=== PATIENT | male | born 1960 | race Caucasian/White ===

== ENCOUNTER 2018-02-21 08:28 | Emergency (ER) | payer OTHER ==
[2018-02-21] MEDS ORDERED: MECLIZINE 12.5 MG TAB PO STA (08:59)
[2018-02-21] MEDS ORDERED: SODIUM CHLORIDE 0.9% 1,000 ML IV STA (08:59)
--- NOTE | 2018-02-21 09:13 | ED ---
General Adult HPI - General Chief complaint: Dizziness Stated complaint: Dizzy Time Seen by Provider: 02/21/18 08:47 Source: patient, RN notes reviewed Mode of arrival: ambulatory Limitations: no limitations - History of Present Illness Initial comments: Patient 57-year-old male significant past medical history for stroke, presenting to the emergency room today with a chief complaint of dizziness over the last for 5 days. States started when he was just up and moving around but now has been feeling even when he is sitting. He does describe it as the room spinning. States never had this before. States appetites been well. He denies any other complaints or symptoms. Patient denies any recent fever, chills , shortness of breath, chest pain, back pain, abdominal pain, nausea or vomiting , numbness or tingling, dysuria or hematuria, constipation or diarrhea, headaches or visual changes, or any other complaints. - Related Data Previous Rx's Medication Instructions Recorded Meclizine [Antivert] 25 mg PO DAILY 10 Days tab 02/21/18 Allergies Allergy/AdvReac Type Severity Reaction Status Date / Time No Known Allergies Allergy Verified 02/21/18 08:45 Review of Systems ROS Statement: Those systems with pertinent positive or pertinent negative responses have been documented in the HPI. ROS Other: All systems not noted in ROS Statement are negative. Past Medical History Past Medical History: CVA/TIA, Hyperlipidemia, Hypertension Additional Past Medical History / Comment(s): INTESTINAL BLOCKAGE History of Any Multi-Drug Resistant Organisms: None Reported Additional Past Surgical History / Comment(s): CAROTID STENT Past Psychological History: No Psychological Hx Reported Smoking Status: Former smoker Past Alcohol Use History: None Reported Past Drug Use History: None Reported General Exam - General Exam Comments Initial Comments: General: The patient is awake and alert, in no distress, and does not appear acutely ill. Eye: Pupils are equal, round and reactive to light, extra-ocular movements are intact. No nystagmus. There is normal conjunctiva bilaterally. No signs of icterus. Ears, nose, mouth and throat: There are moist mucous membranes and no oral lesions. Neck: The neck is supple, there is no tenderness or JVD. Cardiovascular: There is a regular rate and rhythm. No murmur, rub or gallop is appreciated. Respiratory: Lungs are clear to auscultation, respirations are non-labored, breath sounds are equal. No wheezes, stridor, rales, or rhonchi. Musculoskeletal: Normal ROM, no tenderness. Sensation intact. Pulses equal bilaterally 2+. Neurological: A&O x 3. CN II-XII intact, There are no obvious motor or sensory deficits. Coordination appears grossly intact. Speech is normal. Skin: Skin is warm and dry and no rashes or lesions are noted. Psychiatric: Cooperative, appropriate mood & affect, normal judgment. Limitations: no limitations Course Vital Signs 02/21/18 02/21/18 02/21/18 08:40 10:26 11:13 Temperature 98 F Pulse Rate 91 66 74 Respiratory 16 16 19 Rate Blood Pressure 152/76 122/73 143/79 O2 Sat by Pulse 98 99 100 Oximetry Medical Decision Making - Medical Decision Making Patient's EKG performed at 0918: A 12-lead EKG was performed and shows the following: Rate is 81, and rhythm is normal sinus. There are normal QRS complexes and normal R-wave progression. ST segments have no elevation or depression, and FL segments appear normal. Patient reexamined at this time shows no signs of distress. Does admit still feeling somewhat dizzy here in the emergency room. Was given meclizine and fluids. Patient does describe it as the room spinning. His CT of his head was negative. His labs been reviewed are unremarkable. Case was discussed with attending physician Dr. Saucedo. At this time patient will be discharged to follow-up with his family doctor and his neurologist. He'll be continued on meclizine. He is advised to return here to emergency room symptoms increase or worsen or for new concerns. - Lab Data Result diagrams: 02/21/18 09:25 02/21/18 09:25 Lab Results 02/21/18 02/21/18 02/21/18 Range/Units 09:25 09:25 09:25 WBC 5.6 (3.8-10.6) k/uL RBC 4.62 (4.30-5.90) m/uL Hgb 14.2 (13.0-17.5) gm/dL Hct 41.8 (39.0-53.0) % MCV 90.5 (80.0-100.0) fL MCH 30.7 (25.0-35.0) pg MCHC 33.9 (31.0-37.0) g/dL RDW 13.0 (11.5-15.5) % Plt Count 221 (150-450) k/uL Neutrophils % 67 % Lymphocytes % 20 % Monocytes % 7 % Eosinophils % 4 % Basophils % 1 % Neutrophils # 3.7 (1.3-7.7) k/uL Lymphocytes # 1.1 (1.0-4.8) k/uL Monocytes # 0.4 (0-1.0) k/uL Eosinophils # 0.2 (0-0.7) k/uL Basophils # 0.0 (0-0.2) k/uL PT 10.1 (9.0-12.0) sec INR 1.0 (<1.2) APTT 22.6 (22.0-30.0) sec Sodium 143 (137-145) mmol/L Potassium 4.3 (3.5-5.1) mmol/L Chloride 105 (98-107) mmol/L Carbon Dioxide 25 (22-30) mmol/L Anion Gap 13 mmol/L BUN 30 H (9-20) mg/dL Creatinine 1.19 (0.66-1.25) mg/dL Est GFR (CKD-EPI)AfAm 78 (>60 ml/min/1.73 sqM) Est GFR (CKD-EPI)NonAf 68 (>60 ml/min/1.73 sqM) Glucose 92 (74-99) mg/dL Calcium 9.6 (8.4-10.2) mg/dL Total Bilirubin 0.5 (0.2-1.3) mg/dL AST 25 (17-59) U/L ALT 31 (21-72) U/L Alkaline Phosphatase 72 (38-126) U/L Total Creatine Kinase (55-170) U/L CK-MB (CK-2) (0.0-2.4) ng/mL CK-MB (CK-2) Rel Index Troponin I (0.000-0.034) ng/mL Total Protein 7.0 (6.3-8.2) g/dL Albumin 4.3 (3.5-5.0) g/dL Urine Color Urine Appearance (Clear) Urine pH (5.0-8.0) Ur Specific [place] (1.001-1.035) Urine Protein (Negative) Urine Glucose (UA) (Negative) Urine Ketones (Negative) Urine Blood (Negative) Urine Nitrite (Negative) Urine Bilirubin (Negative) Urine Urobilinogen (<2.0) mg/dL Ur Leukocyte Esterase (Negative) 02/21/18 02/21/18 Range/Units 09:25 10:19 WBC (3.8-10.6) k/uL RBC (4.30-5.90) m/uL Hgb (13.0-17.5) gm/dL Hct (39.0-53.0) % MCV (80.0-100.0) fL MCH (25.0-35.0) pg MCHC (31.0-37.0) g/dL RDW (11.5-15.5) % Plt Count (150-450) k/uL Neutrophils % % Lymphocytes % % Monocytes % % Eosinophils % % Basophils % % Neutrophils # (1.3-7.7) k/uL Lymphocytes # (1.0-4.8) k/uL Monocytes # (0-1.0) k/uL Eosinophils # (0-0.7) k/uL Basophils # (0-0.2) k/uL PT (9.0-12.0) sec INR (<1.2) APTT (22.0-30.0) sec Sodium (137-145) mmol/L Potassium (3.5-5.1) mmol/L Chloride (98-107) mmol/L Carbon Dioxide (22-30) mmol/L Anion Gap mmol/L BUN (9-20) mg/dL Creatinine (0.66-1.25) mg/dL Est GFR (CKD-EPI)AfAm (>60 ml/min/1.73 sqM) Est GFR (CKD-EPI)NonAf (>60 ml/min/1.73 sqM) Glucose (74-99) mg/dL Calcium (8.4-10.2) mg/dL Total Bilirubin (0.2-1.3) mg/dL AST (17-59) U/L ALT (21-72) U/L Alkaline Phosphatase (38-126) U/L Total Creatine Kinase 84 (55-170) U/L CK-MB (CK-2) 0.9 (0.0-2.4) ng/mL CK-MB (CK-2) Rel Index 1.1 Troponin I <0.012 (0.000-0.034) ng/mL Total Protein (6.3-8.2) g/dL Albumin (3.5-5.0) g/dL Urine Color Light Yellow Urine Appearance Clear (Clear) Urine pH 6.0 (5.0-8.0) Ur Specific [place] 1.010 (1.001-1.035) Urine Protein Negative (Negative) Urine Glucose (UA) Negative (Negative) Urine Ketones Negative (Negative) Urine Blood Negative (Negative) Urine Nitrite Negative (Negative) Urine Bilirubin Negative (Negative) Urine Urobilinogen <2.0 (<2.0) mg/dL Ur Leukocyte Esterase Negative (Negative) Disposition Clinical Impression: Dizziness Disposition: HOME SELF-CARE Condition: Good Instructions: Dizziness (ED) Additional Instructions: Please use medication as discussed. Please follow-up with neurologist/family doctor in the next 2 days. Please return to emergency room if the symptoms increase or worsen or for any other concerns. Prescriptions: Meclizine [Antivert] 25 mg PO DAILY 10 Days tab Is patient prescribed a controlled substance at d/c from ED?: No Referrals: None,Stated [Primary Care Provider] - 1-2 days Tha Hilliard DO [STAFF PHYSICIAN] - 1-2 days Time of Disposition: 11:29
[2018-02-21 09:38] LABS: Basophils % (A) 1 %; Eosinophils # (A) 0.2 k/uL (0-0.7); Eosinophils % (A) 4 %; HCT 41.8 % (39.0-53.0); HGB 14.2 gm/dL (13.0-17.5); Lymphocytes # (A) 1.1 k/uL (1.0-4.8); Lymphocytes % (A) 20 %; MCH 30.7 pg (25.0-35.0); MCHC 33.9 g/dL (31.0-37.0); MCV 90.5 fL (80.0-100.0); Mean Platelet Volume 6.4; Monocytes # (A) 0.4 k/uL (0-1.0); Monocytes % (A) 7 %; Neutrophils # (A) 3.7 k/uL (1.3-7.7); Neutrophils % (A) 67 %; Platelet Count 221 k/uL (150-450); RBC 4.62 m/uL (4.30-5.90); WBC 5.6 k/uL (3.8-10.6)
[2018-02-21 09:49] LABS: Albumin 4.3 g/dL (3.5-5.0); Calcium 9.6 mg/dL (8.4-10.2); Potassium 4.3 mmol/L (3.5-5.1); Total Bilirubin 0.5 mg/dL (0.2-1.3)
[2018-02-21 09:52] LABS: Partial Thromboplastin Time 22.6 sec (22.0-30.0); Prothrombin Time 10.1 sec (9.0-12.0)
[2018-02-21 10:12] LABS: Creatine Kinase 84 U/L (55-170)
[2018-02-21 10:24] LABS: Creatine Kinase MB 0.9 ng/mL (0.0-2.4); Troponin I <0.012 ng/mL (0.000-0.034)
[2018-02-21 10:28] LABS: Appearance,Urine Clear (Clear); Bilirubin,Urine Negative (Negative); Blood,Urine Negative (Negative); Color,Urine Light Yellow; Glucose,Urine (UA) Negative (Negative); Ketones,Urine Negative (Negative); Leukocyte Esterase,Urine Negative (Negative); Nitrite,Urine Negative (Negative); Protein,Urine Negative (Negative); Urobilinogen,Urine <2.0 mg/dL (<2.0)
--- NOTE | 2018-02-21 10:55 | CT ---
EXAMINATION TYPE: CT brain wo con DATE OF EXAM: 02/21/2018 COMPARISON: NONE HISTORY: Dizziness, prior CVA CT DLP: 938.3 mGycm. Automated Exposure Control for Dose Reduction was Utilized. TECHNIQUE: CT scan of the head is performed without contrast. FINDINGS: There is encephalomalacia involving the left frontal lobe and central white matter with ex vacuo dilatation of the anterior horn of the left lateral ventricle and body of the left lateral vent ricle in the distribution of the middle cerebral artery. There is no acute intracranial hemorrhage, mass effect, or midline shift identified. The ventricles and sulci are within normal limits in size. No suspicious extra-axial fluid collection. The globes are intact and the visualized sinuses are cl ear. IMPRESSION: No acute intracranial process. Encephalomalacia in the distribution of the left middle c erebral artery from prior infarct.
[2018-02-21 11:14] VITALS: BP 143/79; PULSE 74; RESP 19
[2018-02-21 11:45] VITALS: TEMP 98.3
== END 2018-02-21 11:45 | disposition home or self-care (01) ==
LOC: EC 08:28
DX: R42 Dizziness and giddiness (principal); Z87.891 Personal history of nicotine dependence; Z86.73 Personal history of transient ischemic attack (TIA), and cerebral infarction without residual deficits; Z95.828 Presence of other vascular implants and grafts
CPT/HCPCS: 36415; 70450; 80053; 81003; 82550; 82553; 84484; 85025; 85610; 85730; 93005; 96360; 99284

== ENCOUNTER → 2018-12-08 | Outpatient (CLI) | payer OTHER ==
--- NOTE | 2018-12-08 10:25 | MR ---
EXAMINATION TYPE: MR brain wo con DATE OF EXAM: 12/08/2018 COMPARISON: Correlation CT 02/21/2018 HISTORY: 58-year-old male with history of stroke / Aphasia TECHNIQUE: Multiplanar, multisequence images of the brain and brainstem were acquired without IV con trast. Diffusion weighted imaging is performed. FINDINGS: No evidence for acute infarction, hemorrhage, mass, mass effect, midline shift, herniation, effacemen t of basal cisterns, or extra-axial fluid collection. The ventricles and sulci are age-appropriate. Major intracranial flow voids are intact. T2/FLAIR weighted sequences show extensive encephalomalacia and gliosis in the left MCA distribution along the left frontal and insular lobes. Corresponding volume loss with asymmetric enlargement of the left lateral ventricle. There is a contiguous tract of gliosis extending towards the deep left cerebral structures and then a long the left corticospinal tract within the brainstem. A couple foci of bright signal in the deep white matter of the right cerebral hemisphere likely relat ing to changes of chronic small vessel ischemic disease. Midline structures demonstrate normal morphology. The craniocervical junction is normal. Mild mucosal thickening within the ethmoid air cells and maxillary sinuses. Also within the left fron kenny sinus. Globes appear intact. IMPRESSION: 1. Large old left MCA territory infarct with encephalomalacia and gliosis. 2. Corresponding [place]ian degeneration is demonstrated on T2/FLAIR. 3. No acute intracranial abnormality seen. 4. Mild chronic paranasal sinus disease.
== END | disposition home or self-care (01) ==
LOC: RADMRIMAIN 08:21
PROVIDERS: ATTEND Psychiatry & Neurology Neurology
DX: G93.89 Other specified disorders of brain (principal); Z86.73 Personal history of transient ischemic attack (TIA), and cerebral infarction without residual deficits
CPT/HCPCS: 70551

== ENCOUNTER → 2023-07-29 | Outpatient (CLI) | payer OTHER ==
--- NOTE | 2023-07-29 11:32 | CTL ---
EXAMINATION TYPE: CT Low Dose Lung DATE OF EXAM ORDERED: 07/29/2023 HISTORY: 63-year-old male Z12.2 screening for lung ca . Former smoker, quit 6 years ago. 44 pack-year history. Lung cancer screening CT DLP: 130.[address] CTDI: 3.80 mGy Automated exposure control for dose reduction was used. SCREENING VISIT: Baseline COMPARISON: None TECHNIQUE: Low dose computed tomography scan was performed through the chest with coronal and sagitta l reconstructions. CT DIAGNOSTIC QUALITY: Satisfactory FINDINGS: Heart normal size without pericardial effusion. Scattered three-vessel coronary artery calcifications are present and are unremarkable for coronary artery disease. Mild atherosclerotic arch calcifications. Bovine configuration to the aortic arch. Scattered small mediastinal lymph nodes. No thoracic lymphadenopathy by CT size criteria. Mild diffuse bronchial wall thickening. Mild emphysematous change. Minimal biapical pleural parenchym al scarring. No consolidation or pleural effusion. Tiny 3 mm left mid lung pulmonary nodule, axial image 113. Tiny 3 mm posterior left lower lobe pulmonary nodule, axial image 186. Tiny 3 mm superior segment right lower lobe pulmonary nodule, axial image 123. Tiny hiatal hernia. Some focal contour lobulation anterior mid left kidney partially visualized could be normal renal contour. Recommend follow-up renal ultrasound to exclude the possibility of underlyi ng cortical mass. Bones: No osseous destructive process. IMPRESSION: 1. LungRADS 2, benign. A few scattered 3 mm pulmonary nodules on baseline screening. 2. COPD with mild emphysema. 3. Three-vessel coronary artery calcifications which are a marker for coronary disease. 4. Either focal contour lobulation versus underlying mass anterior mid left kidney. This area is only partially imaged. Recommend renal ultrasound to further evaluate. CT LUNG RAD AND CT CHEST RECOMMENDATION: Lung-Rad 2 Benign Appearance or Behavior: Continue annual sc reening with LDCT in 12 months. S Modifier (other clinically significant findings): S, recommend renal ultrasound follow-up.
== END | disposition home or self-care (01) ==
LOC: RADCTMAIN 06:24
PROVIDERS: ATTEND Family Medicine
DX: Z12.2 Encounter for screening for malignant neoplasm of respiratory organs (principal); I25.10 Atherosclerotic heart disease of native coronary artery without angina pectoris; J43.9 Emphysema, unspecified; Z87.891 Personal history of nicotine dependence
CPT/HCPCS: 71271

== ENCOUNTER → 2023-08-28 | Outpatient (CLI) | payer OTHER ==
--- NOTE | 2023-08-28 16:05 | US ---
EXAMINATION TYPE: US kidneys/renal and bladder DATE OF EXAM: 08/28/2023 COMPARISON: NONE CLINICAL INDICATION: Male, 63 years old with history of N28.89 L RENAL MASS; F/U to lung ct left kidn ey possible mass seen EXAM MEASUREMENTS: Right Kidney: Not seen due to bowel gas cm Left Kidney: 12.4 x 6.7 x 4.9 cm Right Kidney: Not visualized due to bowel gas Left Kidney: No hydronephrosis or masses seen Bladder: anechoic Bilateral Jets seen: Yes There is no evidence for hydronephrosis at this point in time. No nephrolithiasis is seen. No bob s are identified. The urinary bladder is anechoic. Bilateral ureteral jets are seen. IMPRESSION: 1. Right kidney was not seen. 2. No evidence of left-sided hydronephrosis.
== END | disposition home or self-care (01) ==
LOC: RADUSWWP 15:30
PROVIDERS: ATTEND Family Medicine
DX: N28.89 Other specified disorders of kidney and ureter (principal); R14.0 Abdominal distension (gaseous)
CPT/HCPCS: 76770